=== PATIENT | male | born 1940 | race African-American/Black ===

== ENCOUNTER 2024-11-01 09:33 | Emergency (ER) | payer MEDICARE, MEDICAID ==
[~2024-11-01] VITALS: Ht 165.1 cm; Wt 68.0 kg
[~2024-11-01 09:33] MED LIST: AMLO2.5T2 PO; ASPI-1497 PO; LOSA-413 PO; SPIR25TA PO; TAMS-54 MT
[2024-11-01 09:37] VITALS: O2SAT 99
[2024-11-01 09:56] VITALS: BP 149/86; PULSE 53; RESP 16; TEMP 36.7; O2SAT 99
[2024-11-01] MEDS ORDERED: TAMS-54 MT (10:22)
[2024-11-01] MEDS ORDERED: OXYC-100 MT (10:22)
[2024-11-01] MEDS ORDERED: ONDA-239 PO (10:24)
[2024-11-01] MEDS: ACETAMINOPHEN 325MG TABLET PO STA (10:28)
[2024-11-01] MEDS: KETOROLAC 30MG/ML VIAL IM STA (10:28)
[2024-11-01] MEDS: OXYCODONE HCL/ACETAMINOPHEN 5/325MG TABLET PO ONE (11:11)
== END 2024-11-01 11:27 | disposition home or self-care (01) ==
LOC: ER 11:10
DX: N20.0 Calculus of kidney (principal); I10 Essential (primary) hypertension; Z79.899 Other long term (current) drug therapy; Z79.82 Long term (current) use of aspirin; Z98.890 Other specified postprocedural states
CPT/HCPCS: 99283; 96372; J1885